=== PATIENT | female | born 1995 | race Two or more races ===

== ENCOUNTER 2016-09-14 16:28 | Emergency (ER) | payer SELFPAY ==
[~2016-09-14] VITALS: Ht 162.6 cm; Wt 52.2 kg
[2016-09-14] MEDS ORDERED: IV NORMAL SALINE 1000ML BAG 1,000 ML IV SCH (16:50)
--- NOTE | 2016-09-14 16:56 | PHYS DOC ---
Past Medical History Past Medical History: No Pertinent History Past Surgical History: No Surgical History Alcohol Use: None Drug Use: None Adult General Chief Complaint Chief Complaint: FEVER HPI HPI Patient is a 21 year old female presents emergency Department today with 2 friends complaint of fever, body aches, nonproductive cough, nausea vomiting and diarrhea that began approximately one week ago. There've been no known ill contacts with similar symptoms. Patient denies any history of chronic medical problems. She does not know if she is . She is sexually active. She denies abdominal or pelvic pain. She denies vaginal bleeding or vaginal discharge. She denies antibiotic use, hospitalization or foreign travel within the past 90 days She reports that she's been experiencing generalized weakness and lightheadedness. She denies syncopal episodes. Review of Systems Review of Systems Constitutional: Denies fever or chills [] Eyes: Denies change in visual acuity, redness, or eye pain [] HENT: Denies nasal congestion or sore throat [] Respiratory: Denies cough or shortness of breath [] Cardiovascular: No additional information not addressed in HPI [] GI: Denies abdominal pain, nausea, vomiting, bloody stools or diarrhea [] : Denies dysuria or hematuria [] Musculoskeletal: Denies back pain or joint pain [] Integument: Denies rash or skin lesions [] Neurologic: Denies headache, focal weakness or sensory changes [] Endocrine: Denies polyuria or polydipsia [] Current Medications Current Medications Current Medications Medications (Trade) Dose Ordered Sig/Jonathan Start Time Stop Time Status Last Admin Dose Admin Acetaminophen (Tylenol) 650 mg 1X ONCE 09/14/16 17:00 09/14/16 17:01 DC 09/14/16 17:34 650 MG Ibuprofen (Motrin) 800 mg 1X ONCE 09/14/16 18:45 09/14/16 18:46 DC 09/14/16 19:12 800 MG Sodium Chloride (Iv Sodium Chloride 0.9% 1000ml Bag) 1,000 ml @ 1,000 mls/hr 1X ONCE 09/14/16 18:30 09/14/16 19:29 DC 09/14/16 19:13 1,000 MLS/HR Sodium Chloride 10 ml 10 ml QSHIFT PRN 09/14/16 17:00 09/14/16 21:06 DC Allergies Allergies Allergies Coded Allergies Type Severity Reaction Last Updated Verified No Known Drug Allergies 09/14/16 No Physical Exam Physical Exam Constitutional: Patient appears ill but not toxic. HENT: Normocephalic, atraumatic, bilateral external ears normal,no oral exudates , nose normal. Lips and oral mucosa are dry. Eyes: PERRLA, EOMI, conjunctiva normal, no discharge. [] Neck: Normal range of motion, no tenderness, supple, no stridor. There is no meningismus. There is bilateral anterior and posterior cervical lymphadenopathy. Cardiovascular:Heart rate 136 with regular rhythm, no murmur Lungs & Thorax: There is no evidence respiratory distress or respiratory fatigue. Patient with poor inspiratory effort making it difficult for full auscultation of her lung serrano. There are no rales, rhonchi or wheezing. Abdomen: Bowel sounds normal, soft, no tenderness, no masses, no pulsatile masses. Skin: Skin is hot to the touch and dry. Skin turgor is poor. There are no rashes. Back: No tenderness, no CVA tenderness. Extremities: No tenderness, no cyanosis, no clubbing, ROM intact, no edema. [] Neurologic: Alert and oriented X 3, normal motor function, normal sensory function, no focal deficits noted. [] Psychologic: Affect normal, judgement normal, mood normal. [] Current Patient Data Vital Signs Vital Signs Date Time Temp Pulse Resp B/P Pulse Ox O2 Delivery O2 Flow Rate FiO2 09/14/16 20:10 102 18 111/64 100 Room Air 09/14/16 19:39 100.7 100.7 Lab Values Laboratory Tests Test 09/14/16 16:44 09/14/16 17:02 09/14/16 17:40 09/14/16 20:02 Influenza Type A Antigen Negative (NEGATIVE) Influenza Type B Antigen Negative (NEGATIVE) Urine Test Negative (NEG) White Blood Count 6.7x10^3/uL (4.0-11.0) Red Blood Count 4.66x10^6/uL (3.50-5.40) Hemoglobin 14.0g/dL (12.0-15.5) Hematocrit 42.4% (36.0-47.0) Mean Corpuscular Volume 91fL (79-100) Mean Corpuscular Hemoglobin 30pg (25-35) Mean Corpuscular Hemoglobin Concent 33g/dL (31-37) Red Cell Distribution Width 14.3% (11.5-14.5) Platelet Count 158x10^3/uL (140-400) Neutrophils (%) (Auto) 86% (31-73) H Lymphocytes (%) (Auto) 8% (24-48) L Monocytes (%) (Auto) 6% (0-9) Eosinophils (%) (Auto) 0% (0-3) Basophils (%) (Auto) 0% (0-3) Neutrophils # (Auto) 5.7x10^3uL (1.8-7.7) Lymphocytes # (Auto) 0.5x10^3/uL (1.0-4.8) L Monocytes # (Auto) 0.4x10^3/uL (0.0-1.1) Eosinophils # (Auto) 0.0x10^3/uL (0.0-0.7) Basophils # (Auto) 0.0x10^3/uL (0.0-0.2) Segmented Neutrophils % 72% (35-66) H Band Neutrophils % 19% (0-9) H Lymphocytes % 3% (24-48) L Monocytes % 5% (0-10) Metamyelocytes % 1% (0-0) H Platelet Estimate Adequate (ADEQUATE) Sodium Level 139mmol/L (136-145) Potassium Level 3.5mmol/L (3.5-5.1) Chloride Level 103mmol/L (98-107) Carbon Dioxide Level 25mmol/L (21-32) Anion Gap 11 (6-14) Blood Urea Nitrogen 7mg/dL (7-20) Creatinine 0.8mg/dL (0.6-1.0) Estimated GFR (Cockcroft-Gault) 90.5 BUN/Creatinine Ratio 9 (6-20) Glucose Level 117mg/dL (70-99) H Calcium Level 9.0mg/dL (8.5-10.1) Total Bilirubin 0.3mg/dL (0.2-1.0) Aspartate Amino Transferase (AST) 43U/L (15-37) H Alanine Aminotransferase (ALT) 54U/L (14-59) Alkaline Phosphatase 63U/L (46-116) Total Protein 8.2g/dL (6.4-8.2) Albumin 4.0g/dL (3.4-5.0) Albumin/Globulin Ratio 1.0 (1.0-1.7) Urine Collection Type Unknown Urine Color Yellow Urine Clarity Clear Urine pH 6.0 Urine Specific [place] <=1.005 Urine Protein Negativemg/dL (NEG-TRACE) Urine Glucose (UA) Negativemg/dL (NEG) Urine Ketones (Stick) Tracemg/dL (NEG) Urine Blood Negative (NEG) Urine Nitrite Negative (NEG) Urine Bilirubin Negative (NEG) Urine Urobilinogen Dipstick 0.2mg/dL (0.2 mg/dL) Urine Leukocyte Esterase Negative (NEG) Urine RBC Occ/HPF (0-2) Urine WBC 0/HPF (0-4) Urine Squamous Epithelial Cells Few/LPF Urine Bacteria 0/HPF (0-FEW) Laboratory Tests 09/14/16 17:40 Laboratory Tests 09/14/16 17:40 EKG EKG [] Radiology/Procedures Radiology/Procedures CXR (my read): No acute abnormality Course & Med Decision Making Course & Med Decision Making Based on the length of patient's illness and her current physical exam findings as well as her current vital signs, patient will be moved over to the acute side of the emergency department for further evaluation and administration of IV fluids. Patient seen and examined with TRICE Barreto. Agree with above documentation. In brief, patient is 21 year old female who presents with multiple symptoms concerning for viral syndrome. Patient with significant tachycardia on arrival, appears due to dehydration. Labs, UA, CXR ordered. Labs largely unremarkable. CXR clear per my read. After 2L fluid, acetaminophen, ibuprofen, patient's HR has dropped to low 100s. I discussed results with patient via reinforced ironworker phone; she is feeling a little better at this time. Will discharge home with instructions for aggressive fluid hydration, nausea meds, instructions for follow up, return precautions. Dragon Disclaimer Dragon Disclaimer This electronic medical record was generated, in whole or in part, using a voice recognition dictation system. Departure Departure Impression: Primary Impression: Viral syndrome Disposition: 01 HOME, SELF-CARE Condition: IMPROVED Patient Instructions: Viral Syndrome Additional Instructions: Thank you for allowing us to provide care today in the Emergency Department. Take the prescribed medication as directed. Be sure you are drinking plenty of fluids (such as water or Gatorade). You can also take acetaminophen, ibuprofen, or naproxen for fever and body aches. Follow the directions on the label. Schedule a follow up appointment with a primary care doctor using the provided list. Return promptly to the Emergency Department if you develop any new or concerning symptoms. Scripts Ondansetron (Zofran Odt)4 Mg Tab.rapdis1 Tab SL Q8HRS PRN NAUSEA #15 TAB Prov:MEÑO HANSEN MD 09/14/16 JOSE HAMLIN Sep 14, 2016 16:56 MEÑO HANSEN MD Sep 14, 2016 20:48
[2016-09-14] MEDS ORDERED: ACETAMINOPHEN 325 MG TABLET. PO ONE (17:00)
[2016-09-14] MEDS ORDERED: 0.9 % SODIUM CHLORIDE 10 ML DISP.SYRIN. IV PRN (17:00)
[2016-09-14 17:42] LABS: NEG OBC UR NEG; POS OBC UR POS
[2016-09-14 17:49] LABS: OBC FLU VALID
[2016-09-14 18:12] LABS: BASO % 0 % (0-3); EOS % 0 % (0-3); HEMATOCRIT 42.4 % (36.0-47.0); LYMPH # 0.5 x10^3/uL (1.0-4.8); LYMPH % 8 % (24-48); MEAN CORPUSCULAR HEMOGLOBIN 30 pg (25-35); MEAN CORPUSCULAR HGB CONC 33 g/dL (31-37); MEAN CORPUSCULAR VOLUME 91 fL (79-100); MONO % 6 % (0-9); NEUT % 86 % (31-73); PLATELET COUNT 158 x10^3/uL (140-400); RED BLOOD COUNT 4.66 x10^6/uL (3.50-5.40); RED CELL DISTRIBUTION WIDTH 14.3 % (11.5-14.5); WHITE BLOOD COUNT 6.7 x10^3/uL (4.0-11.0)
[2016-09-14] MEDS ORDERED: IV NORMAL SALINE 1000ML BAG 1,000 ML IV ONE (18:30)
[2016-09-14 18:44] LABS: CREATININE 0.8 mg/dL (0.6-1.0); GFR 90.5; POTASSIUM 3.5 mmol/L (3.5-5.1)
[2016-09-14] MEDS ORDERED: IBUPROFEN 800 MG TABLET. PO ONE (18:45)
[2016-09-14 18:49] LABS: TOTAL BILIRUBIN 0.3 mg/dL (0.2-1.0); TOTAL PROTEIN 8.2 g/dL (6.4-8.2)
[2016-09-14 19:52] LABS: PLT ESTIMATE ADEQUATE (ADEQUATE)
[2016-09-14 20:10] VITALS: BP 111/64
[2016-09-14 20:17] LABS: BILIRUBIN,URINE NEGATIVE (NEG); GLUCOSE,URINE NEGATIVE (NEG); NITRITE,URINE NEGATIVE (NEG); PROTEIN,URINE NEGATIVE (NEG-TRACE); UROBILINOGEN,URINE 0.2 mg/dL (0.2 mg/dL)
[2016-09-14 20:30] LABS: BACTERIA,URINE 0 /HPF (0-FEW); RBC,URINE OCC /HPF (0-2); SQUAMOUS EPITHELIAL CELL,UR FEW /LPF; WBC,URINE 0 /HPF (0-4)
[2016-09-14] MEDS ORDERED: ONDA4TAB10 SL (20:48)
[2016-09-15 07:39] LABS: NEGATIVE OBC STREP NEG; POSITIVE OBC STREP POS
--- NOTE | 2016-09-15 08:06 | RAD ---
EXAM: Chest 2 views. HISTORY: Fever and cough. COMPARISON: None. FINDINGS: Frontal and lateral views of the chest are obtained. There are no confluent infiltrates. There is no pneumothorax or pleural effusion. The heart is not enlarged. IMPRESSION: 1. No confluent infiltrates.
== END 2016-09-14 21:06 | disposition home or self-care (01) ==
LOC: ER 16:28
DX: B34.9 Viral infection, unspecified (principal); R00.0 Tachycardia, unspecified; E86.0 Dehydration; R59.1 Generalized enlarged lymph nodes; R53.1 Weakness; R42 Dizziness and giddiness; R19.7 Diarrhea, unspecified; R11.2 Nausea with vomiting, unspecified
CPT/HCPCS: 36415; 71020; 80053; 81001; 81025; 85007; 85027; 87040; 87070; 87804; 87880; 96360; 96361; 99285; J7030